=== PATIENT | female | born 1970 | race Caucasian/White ===

== ENCOUNTER 2021-12-31 10:24 | Outpatient (CLI) | payer OTHER, SELFPAY ==
[2021-12-31 15:05] LABS: Cholesterol* 206 mg/dL (90-199); HDL Cholesterol* 63 mg/dL (>=50); LDL Cholesterol Calculated 131 mg/dL (<100); Triglycerides* 61 mg/dL (40-149)
== END 2021-12-31 10:25 | disposition home or self-care (01) ==
PROVIDERS: Visit Provider Physician Assistant
DX: Z01.419 Encounter for gynecological examination (general) (routine) without abnormal findings (principal); R23.2 Flushing; Z13.6 Encounter for screening for cardiovascular disorders; Z13.1 Encounter for screening for diabetes mellitus
CPT/HCPCS: 80061; 83001; 84443; 87624; 88175

== ENCOUNTER 2022-03-16 11:45 | Outpatient (CLI) | payer OTHER, SELFPAY ==
--- NOTE | 2022-03-16 12:00 | CRLHL7_ITS ---
For Patients: As a result of the Century Cures Act, medical imaging exams and procedure reports are released immediately into your electronic medical record. You may view this report before your referring provider. If you have questions, please contact your health care provider. BILATERAL DIGITAL SCREENING MAMMOGRAM WITH COMPUTER-AIDED DETECTION AND TOMOSYNTHESIS, 03/16/2022 CLINICAL HISTORY: Routine screening exam. COMPARISON: None. TECHNIQUE: Digital mammogram in CC and MLO projections including computer-aided detection (CAD) and tomosynthesis. CC and MLO views were obtained. These mammographic images have been obtained using full-field digital technique. BREAST COMPOSITION: There are scattered areas of fibroglandular density. FINDINGS: RIGHT Breast: No suspicious findings. LEFT Breast: Focal nodular density within the lower inner quadrant 5 cm from the nipple. IMPRESSION: LEFT breast asymmetry/mass. RECOMMENDATIONS: Additional mammographic views of the LEFT breast including 3D spot compression CC/MLO. LEFT breast ultrasound may also be required. The [facility] will contact the patient for follow-up. A lay language report of this examination will be provided to the patient. BI-RADS Category 0: Incomplete: Need Additional Imaging Evaluation and/or Prior Mammograms for Comparison. Dictated by Wang Waldron MD @ 03/17/2022 9:04:05 AM JR/Dictated by: Wang Waldron MD @ 03/17/2022 9:04:00 AM (Electronically Signed)
== END 2022-03-16 11:46 | disposition home or self-care (01) ==
LOC: MAMMO 11:46
PROVIDERS: PCP Physician Assistant; Visit Provider Physician Assistant
DX: Z12.31 Encounter for screening mammogram for malignant neoplasm of breast (principal); N63.20 Unspecified lump in the left breast, unspecified quadrant
CPT/HCPCS: 77063; 77067

== ENCOUNTER 2022-03-25 07:29 | Outpatient (CLI) | payer OTHER, SELFPAY ==
--- NOTE | 2022-03-25 07:45 | CRLHL7_ITS ---
For Patients: As a result of the Cures Act, medical imaging exams and procedure reports are released immediately into your electronic medical record. You may view this report before your referring provider. If you have questions, please contact your health care provider. LEFT BREAST DIAGNOSTIC MAMMOGRAM WITH COMPUTER-AIDED DETECTION AND TOMOSYNTHESIS LEFT BREAST ULTRASOUND CLINICAL HISTORY: LEFT breast mass/asymmetry. COMPARISON: 03/16/2022. TECHNIQUE: Digital LEFT mammogram in 2 projections using computer-aided detection and tomosynthesis. Real-time ultrasound imaging of LEFT breast with imaging documentation. Scanning was performed by both the technologist and the radiologist. BREAST COMPOSITION: There are scattered areas of fibroglandular density. FINDINGS: 3D spot-compression CC/MLO mammogram images LEFT breast submitted. Smoothly marginated density within the medial LEFT breast the CC view with decreased conspicuity on the MLO view. No architectural distortion or suspicious calcifications. Targeted LEFT breast ultrasound performed in the medial LEFT breast extending from 8-10 o`clock 7 cm from the nipple demonstrates normal fibroglandular tissues. No suspicious findings. No solid masses or cysts. IMPRESSION: No evidence of malignancy. RECOMMENDATIONS: Annual BILATERAL screening mammography. BI-RADS Category 2: Benign Results and recommendations discussed with the patient. A lay language report of this examination will be provided to the patient. Dictated by Wang Waldron MD @ 03/25/2022 10:23:35 AM Signed by: Wang Waldron MD @03/25/2022 3:49:16 PM be/Dictated by: Wang Waldron MD @ 03/25/2022 10:23:00 AM (Electronically Signed)
--- NOTE | 2022-03-25 08:15 | CRLHL7_ITS ---
For Patients: As a result of the Cures Act, medical imaging exams and procedure reports are released immediately into your electronic medical record. You may view this report before your referring provider. If you have questions, please contact your health care provider. CLINICAL HISTORY: LEFT breast mass/asymmetry. COMPARISON: 03/16/2022 TECHNIQUE: Digital LEFT mammogram in 2 projections. Real-time ultrasound imaging of LEFT breast with imaging documentation. Scanning was performed by both the technologist and the radiologist. BREAST COMPOSITION: Scattered fibroglandular densities. FINDINGS: 3D spot-compression CC/MLO mammogram images left breast submitted. Smoothly marginated density within the medial left breast the CC view with decreased conspicuity on the MLO view. No architectural distortion or suspicious calcifications. Targeted left breast ultrasound performed in the medial left breast extending from 8-10 o`clock 7 cm from the nipple demonstrates normal fibroglandular tissues. No suspicious findings. No solid masses or cysts. IMPRESSION: No evidence of malignancy. RECOMMENDATIONS: Annual bilateral screening mammography. BI-RADS: 2. Benign findings. Results and recommendations discussed with the patient. Dictated by Wang Waldron MD @ 03/25/2022 10:23:35 AM (Electronically Signed)
== END 2022-03-25 07:30 | disposition home or self-care (01) ==
LOC: MAMMO 07:30
PROVIDERS: PCP Physician Assistant; Visit Provider Physician Assistant
DX: N63.20 Unspecified lump in the left breast, unspecified quadrant (principal); R92.8 Other abnormal and inconclusive findings on diagnostic imaging of breast
CPT/HCPCS: 76642; 77065; G0279